=== PATIENT | female | born 1965 | race African-American/Black ===

== ENCOUNTER 2022-06-21 14:16 | Emergency (ER) | payer MEDICAID, OTHER ==
[~2022-06-21] VITALS: Ht 175.3 cm; Wt 72.6 kg
--- NOTE | 2022-06-21 15:15 | NUR ---
PT WALKED INTO ER C/O LOWER BACK PAIN SINCE LAST NIGHT. S/P WALKING OUT OF THE SHOWER "FELT SOMETHING SNAPPED". 11/01 ON PAINSCALE. PT DENIES FALLING OR ANY TRAUMA. PT PLACED ON THE BED, CONNECTED TO MONITOR. [id number]. AWAITING MD ORDERS.
--- NOTE | 2022-06-21 15:32 | NUR ---
DR. PIMENTEL AT BEDSIDE FOR EVAL
[2022-06-21] MEDS ORDERED: CYCLOBENZAPRINE 10 MG TABLET ONE (15:59)
[2022-06-21] MEDS ORDERED: KETOROLAC TROMETHAMINE INJ 30 MG/ML VIAL ONE (15:59)
[2022-06-21] MEDS ORDERED: KETOROLAC TROMETHAMINE INJ 60 MG/2 ML VIAL IM ONE (16:00)
[2022-06-21] MEDS ORDERED: CYCLOBENZAPRINE 10 MG TABLET PO ONE (16:00)
[2022-06-21] MEDS ORDERED: CYCL5TAB PO (16:54)
--- NOTE | 2022-06-21 17:04 | NUR ---
DR. PIMENTEL AT BEDSIDE SPEAKING TO THE PATIENT.
--- NOTE | 2022-06-21 17:05 | NUR ---
Patient discharged to home in stable condition. Written and verbal after care instructions given. Patient verbalizes understanding of instruction.
[2022-06-21 17:07] VITALS: BP 132/77
== END 2022-06-21 17:08 | disposition home or self-care (01) ==
LOC: ER 14:32
DX: M54.6 Pain in thoracic spine (principal); I10 Essential (primary) hypertension
CPT/HCPCS: 99283; 96372; 72110; J1885

== ENCOUNTER 2022-07-01 23:23 | Emergency (ER) | payer MEDICAID ==
[~2022-07-01] VITALS: Ht 175.3 cm; Wt 34.9 kg
[~2022-07-01 23:23] MED LIST: CYCL5TAB PO
--- NOTE | 2022-07-02 | NUR ---
EKG COMPLETED AT BEDSIDE
--- NOTE | 2022-07-02 00:25 | NUR ---
BLOOD WORK COLLECTED, SENT TO LAB
--- NOTE | 2022-07-02 00:47 | NUR ---
LEGAL SPECIALIST AT PT'S BEDSIDE
--- NOTE | 2022-07-02 00:49 | NUR ---
PT TAKEN TO CT VIA KERR[facility]
--- NOTE | 2022-07-02 01:00 | NUR ---
Maulik taveras in [facility] - 07/02/22 at [address] PT [address], ACCOMPANIED BY TECH
[2022-07-02 01:05] LABS: BASOPHILS # (AUTO) 0.1 K/uL (0.0-0.2); BASOPHILS % (AUTO) 1.1 % (0.0-2.0); EOSINOPHILS % (AUTO) 4.3 % (0.0-6.0); HEMATOCRIT 35 % (33-45); HEMOGLOBIN 11.7 g/dL (11.5-14.8); LYMPHOCYTES # (AUTO) 2.5 K/uL (0.8-4.8); LYMPHOCYTES % (AUTO) 40.3 % (20.0-44.0); MEAN CORPUSCULAR HGB CONC 33 g/dl (31.0-36.0); MEAN CORPUSCULAR VOLUME 78 fL (82-100); MONOCYTES # (AUTO) 0.4 K/uL (0.1-1.30); MONOCYTES % (AUTO) 6.7 % (2.0-12.0); NEUTROPHILS # (AUTO) 2.9 K/uL (1.8-8.9); NEUTROPHILS % (AUTO) 47.6 % (43.0-81.0); PLATELET COUNT (AUTO) 245 K/uL (150-450); WHITE BLOOD COUNT (AUTO) 6.1 K/uL (4.3-11.0)
[2022-07-02 01:30] LABS: CARBON DIOXIDE 26 mmol/L (21-32); CHLORIDE 109 mmol/L (98-107); CREATININE 0.9 mg/dL (0.6-1.3); GLUCOSE 138 mg/dL (74-106); POTASSIUM 3.3 mmol/L (3.5-5.1); SODIUM SERUM 144 mmol/L (136-145); UREA NITROGEN, BLOOD 9 mg/dL (7-18)
[2022-07-02] MEDS ORDERED: MORPHINE SULFATE INJ 2 MG/ML DISP.SYRIN IV ONE (01:30)
--- NOTE | 2022-07-02 01:40 | NUR ---
MONOTEST DRAWN BY LAB
[2022-07-02 01:43] LABS: ALANINE AMINOTRANSFERASE 35 U/L (12-78); ALBUMIN 3.3 g/dL (3.4-5.0); ALKALINE PHOSPHATASE 99 U/L (46-116); ASPARTATE AMINOTRANSFERASE 22 U/L (15-37); BILIRUBIN,DIRECT 0.1 mg/dL (0.0-0.2); BILIRUBIN,TOTAL 0.5 mg/dL (0.2-1.0); TOTAL PROTEIN, SERUM 6.8 g/dL (6.4-8.2)
[2022-07-02] MEDS ORDERED: MORPHINE SULFATE INJ 2 MG/ML DISP.SYRIN ONE (01:44)
--- NOTE | 2022-07-02 02:30 | NUR ---
LAB AT BEDSIDE
--- NOTE | 2022-07-02 02:41 | NUR ---
URINE COLLECTED AND SENT TO LAB
[2022-07-02 03:26] LABS: MONOTEST NEGATIVE (NEGATIVE)
[2022-07-02 03:30] LABS: BILIRUBIN,URINE NEGATIVE (NEGATIVE); COLOR,URINE OTHER (YELLOW); LEUKOCYTE ESTERASE ,URINE 1+ (NEGATIVE); NITRITE, URINE NEGATIVE (NEGATIVE); PH,URINE 7.5 (5.0-8.0); PROTEIN,URINE NEGATIVE (NEGATIVE); UGLUCOSE NEGATIVE (NEGATIVE); UROBILINOGEN,URINE 0.2 EU/dL (0.2)
[2022-07-02] MEDS ORDERED: NITR100C6 PO (03:36)
[2022-07-02 03:47] LABS: BACTERIA,URINE Few /HPF (None Seen); RBC,URINE 0-2 /HPF (0-2); SQUAMOUS EPITHELIAL CELL,UR Few /HPF (None Seen); WBC,URINE 0-2 /HPF (0-3)
[2022-07-02] MEDS ORDERED: ONDA4TAB5 PO (03:47)
--- NOTE | 2022-07-02 03:47 | NUR ---
Patient discharged to home in stable condition. Written and verbal after care instructions given. Patient verbalizes understanding of instruction. IV removed. Catheter intact and site benign. Pressure and 4x4 applied to site. No bleeding noted.
[2022-07-02 03:49] VITALS: BP 145/100
== END 2022-07-02 03:49 | disposition home or self-care (01) ==
LOC: ER 23:26
DX: N39.0 Urinary tract infection, site not specified (principal); R53.83 Other fatigue; I10 Essential (primary) hypertension; E78.00 Pure hypercholesterolemia, unspecified; Z90.710 Acquired absence of both cervix and uterus; Z79.899 Other long term (current) drug therapy
CPT/HCPCS: 99285; 70450; 71045; 93005; 36415; 96374; 85025; 80048; 87086; 80076; 86308; 81001; 84484 ×2; 85730; 82962; J2270

== ENCOUNTER 2022-08-10 00:48 | Emergency (ER) | payer MEDICAID, OTHER ==
[~2022-08-10] VITALS: Ht 175.3 cm; Wt 73.9 kg
[~2022-08-10 00:48] MED LIST changes: +NITR100C6 PO; +ONDA4TAB5 PO
--- NOTE | 2022-08-10 01:59 | NUR ---
BIBS FROM HOME 2/2 PRESSURE BEHIND BOTH EYES [id number], DIZZINESS, BLURRY VISION (NO RECENT EYE EXAM), HX HTN, HYPERLIPIDEMIA
[2022-08-10] MEDS ORDERED: SUMATRIPTAN SUCCINATE 6 MG/0.5 ML VIAL SQ ONE ×2 (02:13→02:30)
[2022-08-10] MEDS ORDERED: METOCLOPRAMIDE HCL 10 MG/2 ML VIAL ONE (02:13)
--- NOTE | 2022-08-10 02:19 | NUR ---
PT TAKEN TO CT
[2022-08-10] MEDS ORDERED: IV NS 0.9% 1,000 ML BAG IV ONE (02:30)
[2022-08-10] MEDS ORDERED: METOCLOPRAMIDE HCL 10 MG/2 ML VIAL IV ONE (02:30)
--- NOTE | 2022-08-10 02:31 | NUR ---
PT BACK FROM CT
[2022-08-10 04:07] VITALS: BP 148/90
--- NOTE | 2022-08-10 04:07 | NUR ---
Patient discharged to home in stable condition. Written and verbal after care instructions given. Patient verbalizes understanding of instruction.IV removed. Catheter intact and site benign. Pressure and 4x4 applied to site. No bleeding noted.
== END 2022-08-10 04:08 | disposition home or self-care (01) ==
LOC: ER 00:50
DX: R51.9 Headache, unspecified (principal); Z90.49 Acquired absence of other specified parts of digestive tract; Z79.899 Other long term (current) drug therapy
CPT/HCPCS: 99285; 96374; 70450; 96361; 96372; J3030; J2765; J7030